=== PATIENT | female | born 1950 | race African-American/Black ===

== ENCOUNTER 2016-10-09 09:32 | Emergency (ER) | payer MEDICARE, BC ==
[~2016-10-09] VITALS: Ht 175.3 cm; Wt 99.8 kg
[2016-10-09] MEDS ORDERED: PREDNISONE 10 MG TABLET PO ONE (11:45)
[2016-10-09] MEDS ORDERED: MORPHINE SULFATE 10 MG/ML VIAL. IM ONE (11:45)
[2016-10-09] MEDS ORDERED: HYDR-971 PO (11:59)
[2016-10-09] MEDS ORDERED: PRED20TA PO (11:59)
--- NOTE | 2016-10-09 12:00 | PHYS DOC ---
Past Medical History Past Medical History: Arthritis, Diabetes-Type II, Hypertension Past Surgical History: Other Additional Past Surgical Histo: neck surgery Alcohol Use: None Drug Use: None Adult General Chief Complaint Chief Complaint: HIP PAIN HPI HPI Patient is a 66 year old female who presents emergency room today with complaint of atraumatic right lower back/right posterior hip pain that radiates down her right leg past 4-5 days. Patient denies known history of degenerative disc disease. She does have a history of a cervical spine in several years ago. She states that she was advised to have her back further evaluated at that time. Patient does have a history of sarcoidosis as well as fibromyalgia. She does not currently have a spa therapist. She does have a primary care doctor, Dr. Akil Cooney. She denies seeing Dr. Thakur for for this. Patient currently takes tramadol daily for her fibromyalgia and chronic pain. Review of Systems Review of Systems Constitutional: Denies fever or chills [] Eyes: Denies change in visual acuity, redness, or eye pain [] HENT: Denies nasal congestion or sore throat [] Respiratory: Denies cough or shortness of breath [] Cardiovascular: No additional information not addressed in HPI [] GI: Denies abdominal pain, nausea, vomiting, bloody stools or diarrhea [] : Denies dysuria or hematuria [] Musculoskeletal: Denies back pain or joint pain [] Integument: Denies rash or skin lesions [] Neurologic: Denies headache, focal weakness or sensory changes [] Endocrine: Denies polyuria or polydipsia [] Current Medications Current Medications Current Medications Medications (Trade) Dose Ordered Sig/[facility] Start Time Stop Time Status Last Admin Dose Admin Morphine Sulfate 10 mg 1X ONCE 10/09/16 11:45 10/09/16 11:46 DC 10/09/16 11:48 10 MG Prednisone (Prednisone) 50 mg 1X ONCE 10/09/16 11:45 10/09/16 11:46 DC 10/09/16 11:48 50 MG Allergies Allergies Allergies Coded Allergies Type Severity Reaction Last Updated Verified No Known Drug Allergies 10/09/16 No Physical Exam Physical Exam Constitutional: Well developed, well nourished, mild distress, non-toxic appearance. HENT: Normocephalic, atraumatic, bilateral external ears normal, oropharynx moist, no oral exudates, nose normal. [] Eyes: PERRLA, EOMI, conjunctiva normal, no discharge. [] Neck: Normal range of motion, no tenderness, supple, no stridor. [] Cardiovascular:Heart rate regular rhythm, no murmur [] Lungs & Thorax: Bilateral breath sounds clear to auscultation [] Abdomen: Bowel sounds normal, soft, no tenderness, no masses, no pulsatile masses. [] Skin: Warm, dry, no erythema, no rash. [] Back: Patient's back is normal in appearance. There is no overlying skin lesions suggestive of shingles. Patient has tenderness to palpation along the right paraspinous soft tissues at the level of L3-S1. There is tenderness in does migrate to the right posterior aspect of the hip/buttock's. There is no palpable defect, deformity or spasm. Extremities: No tenderness, no cyanosis, no clubbing, ROM intact, no edema. [] Neurologic: Alert and oriented X 3, normal motor function, normal sensory function, no focal deficits noted. There are no dystrophic changes to patient's bilateral lower extremities. Strength is equal. Psychologic: Affect normal, judgement normal, mood normal. [] Current Patient Data Vital Signs Vital Signs Date Time Temp Pulse Resp B/P Pulse Ox O2 Delivery O2 Flow Rate FiO2 10/09/16 12:05 18 10/09/16 12:05 83 144/65 99 10/09/16 10:49 97.9 Room Air 97.9 Lab Values Laboratory Tests Test 10/09/16 11:44 Glucose (Fingerstick) 146mg/dL (70-99) H EKG EKG [] Radiology/Procedures Radiology/Procedures [] Course & Med Decision Making Course & Med Decision Making Pertinent Labs and Imaging studies reviewed. (See chart for details) [] Dragon Disclaimer Dragon Disclaimer This electronic medical record was generated, in whole or in part, using a voice recognition dictation system. Departure Departure Impression: Primary Impression: Lumbosacral radiculopathy Disposition: HOME, SELF-CARE Condition: GOOD Referrals: KATHY SPRINGER MD (PCP) Patient Instructions: Lumbosacral Radiculopathy Additional Instructions: 1. Take the medication as prescribed. As discussed, do not combine tramadol with the pain medicine prescribed here today. 2. Review the discharge instructions provided for self-care and reasons to return to the emergency department. 3. Contact your primary care doctor this afternoon to schedule follow-up appointment for reevaluation next week. Scripts Hydrocodone/Apap 5-325 ([place] 5-325 Tablet)1 Each Tablet1 Tab PO PRN Q6HRS PRN PAIN #15 TAB Ref 0 Prov:ERNESTO REZA 10/09/16 Prednisone 20 Mg Tablet2 Tab PO DAILY 5 Days Prov:ERNESTO REZA 10/09/16 ERNESTO REZA Oct 09, 2016 12:00
[2016-10-09 12:05] VITALS: BP 144/65
== END 2016-10-09 12:07 | disposition home or self-care (01) ==
LOC: ER 09:32
DX: M54.17 Radiculopathy, lumbosacral region (principal); M79.7 Fibromyalgia; G89.29 Other chronic pain; M19.90 Unspecified osteoarthritis, unspecified site; E11.9 Type 2 diabetes mellitus without complications; I10 Essential (primary) hypertension; Z79.891 Long term (current) use of opiate analgesic
CPT/HCPCS: 82947; 96372; 99283; J2270; J7512

== ENCOUNTER 2019-02-24 19:41 | Emergency (ER) | payer MEDICARE, BC ==
[~2019-02-24] VITALS: Ht 175.3 cm; Wt 97.5 kg
[~2019-02-24 19:41] MED LIST: HYDR-3164 PO; PRED20TA PO
[2019-02-24 20:01] VITALS: BP 148/75
--- NOTE | 2019-02-24 20:51 | PHYS DOC ---
Past Medical History Past Medical History: Arthritis, Diabetes-Type II, Hypertension Past Surgical History: Other Additional Past Surgical Histo: neck surgery Alcohol Use: None Drug Use: None Adult General Chief Complaint Chief Complaint: LOWER EXT PAIN HPI HPI Patient is a 68 year old female that presents with right knee pain that started yesterday. The pain goes from above the posterior knee down to ankle. Denies back pain, denies history of blood clots, states that she has been immobile recently she lays in bed a lot. Rates her pain as 0 out of 10, however says it hurts when she stands. Not taking medicine prior to arrival. Review of Systems Review of Systems Constitutional: Denies fever or chills [] Eyes: Denies change in visual acuity, redness, or eye pain [] HENT: Denies nasal congestion or sore throat [] Respiratory: Denies cough or shortness of breath [] Cardiovascular: No additional information not addressed in HPI [] GI: Denies abdominal pain, nausea, vomiting, bloody stools or diarrhea [] : Denies dysuria or hematuria [] Musculoskeletal: Reports R lower extremity pain. Integument: Denies rash or skin lesions [] Neurologic: Denies headache, focal weakness or sensory changes [] Endocrine: Denies polyuria or polydipsia [] Complete systems were reviewed and found to be within normal limits, except as documented in this note. Current Medications Current Medications Current Medications Medications (Trade) Dose Ordered Sig/[facility] Start Time Stop Time Status Last Admin Dose Admin Ketorolac Tromethamine (Toradol 15mg Vial) 15 mg 1X ONCE 02/24/19 23:00 02/24/19 23:02 DC 02/24/19 23:10 15 MG Allergies Allergies Allergies Coded Allergies Type Severity Reaction Last Updated Verified No Known Drug Allergies 10/09/16 No Physical Exam Physical Exam Constitutional: Well developed, well nourished, no acute distress, non-toxic appearance. [] HENT: Normocephalic, atraumatic, bilateral external ears normal, oropharynx moist, no oral exudates, nose normal. [] Eyes: PERRLA, EOMI, conjunctiva normal, no discharge. [] Neck: Normal range of motion, no tenderness, supple, no stridor. [] Cardiovascular:Heart rate regular rhythm, no murmur [] Lungs & Thorax: Bilateral breath sounds clear to auscultation [] Abdomen: Bowel sounds normal, soft, no tenderness, no masses, no pulsatile masses. [] Skin: Warm, dry, no erythema, no rash. [] Back: No tenderness, no CVA tenderness. [] Extremities: Tenderness to posterior R knee, shoots down to ankle. Neurologic: Alert and oriented X 3, normal motor function, normal sensory function, no focal deficits noted. [] Psychologic: Affect normal, judgement normal, mood normal. [] Current Patient Data Vital Signs Vital Signs Date Time Temp Pulse Resp B/P (MAP) Pulse Ox O2 Delivery O2 Flow Rate FiO2 02/24/19 20:01 97.6 91 18 148/75 (99) 95 Room Air 97.6 EKG EKG [] Radiology/Procedures Radiology/Procedures [][facility] [address] [place] [address] IMAGING REPORT Signed PATIENT: PURVI WILKERSON ACCOUNT: [id number] : 1950 LOCATION: ER AGE: 68 SEX: F EXAM STATUS: REG ER ORD. PHYSICIAN: TWYLA BAKER APRN REASON: R posterior knee pain and swelling. PROCEDURE: VENOUS LOWER EXTREMITY RIGHT EXAM: Right lower extremity venous Doppler. HISTORY: Right lower extremity pain/swelling. COMPARISON: None. FINDINGS: Grayscale and Doppler analysis of the right lower extremity deep venous system was performed with graded compression and augmentation. The common femoral, greater saphenous, superficial femoral, popliteal and calf veins were assessed. There is no evidence of deep venous thrombosis. IMPRESSION: 1. No evidence of deep venous thrombosis. Electronically signed by: Mann Flores MD (02/24/2019 11:08 PM) [facility] DICTATED and SIGNED BY: AISSATOU FLORES MD DATE: 02/24/19 4201 Course & Med Decision Making Course & Med Decision Making Pertinent Labs and Imaging studies reviewed. (See chart for details) Will get venous ultrasound to r/o blood clot. Ultrasound is negative for blood clot. Went back into room to reassess patient. The patient states differently then on original assessment that she is having some back pain. It seems likely this is sciatica. Will order Toradol and have follow up with primary care. Dragon Disclaimer Dragon Disclaimer This electronic medical record was generated, in whole or in part, using a voice recognition dictation system. Departure Departure Impression: Primary Impression: Sciatica Additional Impression: Knee pain Disposition: HOME, SELF-CARE Condition: STABLE Referrals: KATHY SPRINGER MD (PCP) Patient Instructions: Sciatica, Sciatica with Rehab[facility] Additional Instructions: Thank you for visiting [facility]. We appreciate you trusting us with your care. If any additional problems come up don't hesitate to return to visit us. Please follow up with your primary care provider so they can plan additional care if needed and know about the problem that you had. If symptoms worsen come back to the Emergency Department. Any concerning symptoms that start such as chest pain, shortness of air, weakness or numbness on one side of the body, running high fevers or any other concerning symptoms return to the ER. Problem Qualifiers Primary Impression: Sciatica Laterality: right Qualified Codes: M54.31 - Sciatica, right side Additional Impression: Knee pain Chronicity: acute Laterality: right Qualified Codes: M25.561 - Pain in right knee TWYLA BAKER APRN Feb 24, 2019 20:51
[2019-02-24] MEDS ORDERED: KETOROLAC 15 MG/ML VIAL. IM ONE (23:00)
--- NOTE | 2019-02-24 23:11 | RAD ---
EXAM: Right lower extremity venous Doppler. HISTORY: Right lower extremity pain/swelling. COMPARISON: None. FINDINGS: Grayscale and Doppler analysis of the right lower extremity deep venous system was performed with graded compression and augmentation. The common femoral, greater saphenous, superficial femoral, popliteal and calf veins were assessed. There is no evidence of deep venous thrombosis. IMPRESSION: 1. No evidence of deep venous thrombosis. Electronically signed by: Mann Flores MD (02/24/2019 11:08 PM) [facility]
== END 2019-02-24 23:13 | disposition home or self-care (01) ==
LOC: ER 19:41
DX: M25.561 Pain in right knee (principal); M54.31 Sciatica, right side; M54.9 Dorsalgia, unspecified; I10 Essential (primary) hypertension; E11.9 Type 2 diabetes mellitus without complications
CPT/HCPCS: 93971; 96372; 99284; J1885